=== PATIENT | male | born 1965 | race Two or more races ===

== ENCOUNTER 2019-09-14 11:14 | Inpatient (IN) | payer OTHER ==
[~2019-09-14] VITALS: Ht 172.7 cm; Wt 103.9 kg
[2019-09-14 12:39] LABS: BASOPHILS % 0.3 % (0.0-2.0); HEMATOCRIT. 42.8 % (42.0-52.0); HEMOGLOBIN. 14.7 g/dL (14.0-18.0); MEAN CORPUSCULAR HEMOGLOBIN 29.5 pg (28.0-32.0); MEAN CORPUSCULAR VOLUME 85.8 fL (80.0-94.0); MEAN PLATELET VOLUME 7.5 fl (7.4-10.4); MONOCYTES % 6.1 % (2.0-8.0); NEUTROPHILS % 83.6 % (40.0-76.0); PLATELET 267 x1000/uL (130-400); RED BLOOD CELL COUNT 4.99 mill/uL (4.7-6.1); RED CELL DISTRIBUTION WIDTH 14.1 % (11.6-14.6)
[2019-09-14 12:42] LABS: CHLORIDE 106 mEq/L (98-107)
[2019-09-14] MEDS ORDERED: MORPHINE SULFATE 4 MG/ML CPJ (NOT FOR IM USE) IV ONE (14:00)
[2019-09-14] MEDS ORDERED: DEXTROSE 50% WATER 50ML SYRINGE IV PRN (17:00)
[2019-09-14] MEDS ORDERED: NA PHOS,M-B/NA PHOS,DI-BA ENEMA 118ML PR PRN (17:00)
[2019-09-14] MEDS ORDERED: ENOXAPARIN 40MG/0.4ML SYR SUBCUT SCH (17:00)
[2019-09-14] MEDS ORDERED: ONDANSETRON HCL 4MG/2ML INJ IV PRN (17:00)
[2019-09-14] MEDS ORDERED: DOCUSATE SODIUM 100MG CAPSULE PO PRN (17:00)
[2019-09-14] MEDS ORDERED: KETOROLAC 15MG/ML VIAL IV PRN (17:00)
[2019-09-14] MEDS ORDERED: LORAZEPAM 0.5MG TABLET PO PRN (17:00)
[2019-09-14] MEDS ORDERED: IPRATROPIUM/ALBUTEROL 0.5-3(2.5)MG/3ML NEB NEB PRN (17:00)
[2019-09-14] MEDS ORDERED: ACETAMINOPHEN 325MG TABLET PO PRN (17:00)
[2019-09-14] MEDS ORDERED: TRAMADOL 50MG TABLET PO PRN (17:00)
[2019-09-14] MEDS ORDERED: NITROGLYCERIN 0.4MG TABLET SL SL PRN (17:00)
[2019-09-14] MEDS ORDERED: GUAIFENESIN 200MG/10ML SUGAR FREE UDC PO PRN (17:00)
[2019-09-14] MEDS ORDERED: MAGNESIUM/ALUMINUM HYDROXIDE/SIMETHICONE 30ML UDC PO PRN (17:00)
[2019-09-14] MEDS ORDERED: CLONIDINE 0.1MG TABLET PO PRN (17:00)
[2019-09-14] MEDS: BLOOD SUGAR DIAGNOSTIC STRIP TEST SCH ×2 (17:18→23:35)
[2019-09-14 18:18] LABS: CREATINE KINASE 150 IU/L (39-308)
[2019-09-14 18:19] LABS: CREATINE KINASE MB FRACTION 1.5 ng/mL (0.5-3.6)
[2019-09-14 19:26] LABS: ETHANOL BLOOD < 10 mg/dL
[2019-09-14 19:31] LABS: HDL CHOLESTEROL 26 mg/dL (40-59); LDL CHOLESTEROL 151 mg/dL (5-100)
[2019-09-14] MEDS ORDERED: ONDANSETRON HCL 4MG/2ML INJ IV NR (20:00)
[2019-09-14] MEDS: INSULIN LISPRO 100 UNITS/ML SUBCUT SCH (21:00)
[2019-09-14] MEDS: FAMOTIDINE 20MG TABLET PO SCH (21:26)
[2019-09-14 22:00] VITALS: BP_SYST 129; BP_SYST 138; BP_DIAS 78; BP_DIAS 83
[2019-09-14] MEDS ORDERED: ZOLPIDEM TARTRATE 5MG TABLET PO PRN (22:30)
[2019-09-14 22:38] VITALS: BP 138/83
[2019-09-14 22:50] VITALS: BP 138/83
[2019-09-14] MEDS: ENOXAPARIN 30MG/0.3ML SYR SUBCUT SCH (23:16)
[2019-09-14] MEDS ORDERED: INSULIN LISPRO 100 UNITS/ML SUBCUT SCH (23:45)
[2019-09-15] VITALS: BP 129/78
[2019-09-15 04:00] VITALS: BP 133/81
[2019-09-15] MEDS: BLOOD SUGAR DIAGNOSTIC STRIP TEST SCH ×2 (06:00→11:24)
[2019-09-15] MEDS: INSULIN LISPRO 100 UNITS/ML SUBCUT SCH ×2 (06:00→11:24)
[2019-09-15 06:31] LABS: CREATINE KINASE 121 IU/L (39-308)
[2019-09-15 06:34] LABS: CREATINE KINASE MB FRACTION 1.3 ng/mL (0.5-3.6)
[2019-09-15 08:00] VITALS: BP 132/81
[2019-09-15] MEDS: FAMOTIDINE 20MG TABLET PO SCH (08:53)
[2019-09-15] MEDS: ENOXAPARIN 30MG/0.3ML SYR SUBCUT SCH (08:54)
[2019-09-15] MEDS ORDERED: ASPIRIN 325MG EC TABLET PO SCH (09:00)
[2019-09-15 09:05] LABS: *AMPHETAMINES SCREEN URINE NEGATIVE (NEGATIVE)
[2019-09-15 09:06] LABS: CANNABINOID URINE SCREEN NEGATIVE (NEGATIVE); PHENCYCLIDINE URINE SCREEN NEGATIVE (NEGATIVE)
[2019-09-15 09:10] LABS: *BARBITURATES SCREEN URINE NEGATIVE (NEGATIVE)
[2019-09-15 09:11] LABS: *BENZODIAZEPINES SCREEN URINE NEGATIVE (NEGATIVE); *COCAINE SCREEN URINE NEGATIVE (NEGATIVE)
[2019-09-15 09:17] LABS: METHADONE URINE SCREEN NEGATIVE (NEGATIVE); OPIATES URINE SCREEN PRESUMTIVE POSITIVE (NEGATIVE)
== END 2019-09-15 12:00 | disposition home or self-care (01) | DRG 313 ==
LOC: ER 11:14 → CANBEDREQ 15:41 → 5WST 16:35 → EDBEDREQ 19:48 → ENRESERV 21:22
PROVIDERS: ADMIT Internal Medicine; ATTEND Internal Medicine
DX: R07.89 Other chest pain (principal); E78.00 Pure hypercholesterolemia, unspecified; E78.5 Hyperlipidemia, unspecified; R73.03 Prediabetes; R74.0 Nonspecific elevation of levels of transaminase and lactic acid dehydrogenase [LDH]; R10.9 Unspecified abdominal pain
CPT/HCPCS: 36415; 71045; 80053; 80061; 80305; 80320; 82550; 82553; 82962; 83036; 83880; 84484; 85025; 93005; 93306; 93970; 99285; J1650; J1815; J2270; J2405; G0480